=== PATIENT | male | born 1980 | race Caucasian/White ===

== ENCOUNTER 2021-02-10 18:16 | Emergency (ER) | payer SELFPAY ==
--- NOTE | 2021-02-10 18:32 | ED.GENADULT ---
HPI - General Adult General Chief complaint: Cardiac Arrest/CPR Stated complaint: cardiac arrest Time Seen by Provider: 02/10/21 18:31 Source: EMS Mode of arrival: EMS Limitations: other (Cardiac arrest, intubated) History of Present Illness HPI narrative: 41-year-old male brought to the emergency department in cardiac arrest. Information came from the paramedics and the patient's significant other, . The patient's neighbor saw the patient working in the backyard. Approximately 20 minutes later, the patient's significant other found the patient on his knees to slumped over with his head against the which she had, the patient was drooling and blood was coming from his nose. The neighbor, who was a medical professional came over and started CPR. Police were the 1st responders and the automatic defibrillator recommended a shock. When the paramedics arrived on the scene, the patient was receiving CPR. The paramedics 1st rhythm was asystole. They continued ACLS resuscitation and CPR for approximately 40 minutes. The patient received 5 rounds of epinephrine and 1 amp of calcium. He also received Narcan. The patient was intubated in the paramedics did establish an IO line. Patient remained asystolic with no pulses throughout the entire resuscitative process. On presentation to the emergency department, the patient was intubated by the paramedics and, the patient had symmetric breath sounds, he was cyanotic from the nipple line up to his head, he had no palpable pulses and his initial rhythm was asystole. CPR was continued and he was given epinephrine x2, rhythm checks and pulse checks revealed remained asystolic and pulseless. Given his cyanosis, his unknown down time prior to CPR, and his prolonged resuscitation of 40 minutes in the field I did not think that further resuscitation would be helpful. The patient was pronounced at 1826. Related Data Allergies Allergy/AdvReac Type Severity Reaction Status Date / Time No Known Allergies Allergy Verified 02/10/21 20:36 [facility] Past Medical History [facility] Narrative: The patient has no medical problems. According to his significant other he was not sick in any way prior to this event. The patient does not smoke cigarettes. He drinks alcohol occasionally. He uses marijuana occasionally. Social History Social History Advance Directives: No Advance Directives Information Provided: No Physical Exam Const: Other: Cyanotic, no spontaneous movements, no palpable pulses, endotracheal tube was in place, IO is in the left leg HENMT: Other: No evidence of trauma, normocephalic, Eyes: Other: Patient's pupils are fixed and dilated Neck: Other: No evidence of trauma Chest: Other: No evidence of trauma, chest rises and falls with bag ventilation Resp: Other: Breath sounds are symmetric with bag ventilation, the patient has no crepitus palpation of his chest. Cardio: Other: No audible heart sounds GI: Other: Abdomen is nondistended Back/Spine/Pelvis: Other: The patient does have dirt and grass stains on his back, no obvious trauma Skin: Other: The patient is cyanotic Neuro: Other: No spontaneous movement Extrem: Other: IO was in the left tibia, no evidence of trauma both hands are covered with dirt and grease. Course Course Course Narrative: 41-year-old male with no past medical history, no chronic illnesses, who had a cardiac arrest which was unwitnessed. When the patient was found by his significant other , his skin was mcmillan and cyanotic, CPR was started by bystanders but there was unknown down time prior to starting CPR. First responders had a shockable rhythm. Paramedics found the patient be asystolic and resuscitated the patient for approximately 40 minutes prior to arriving to the emergency department. The patient had asystole throughout the resuscitation and had no return of spontaneous circulation. On presentation to the emergency department the patient was cyanotic, his pupils were fixed and dilated. He was given 2 rounds of epinephrine 1 IV in 1 through the intraosseous line with no response. The patient was pronounced at 6:26 p.m. I did inform the patient's significant other who is here in the emergency department. She states that she will contact the patient's next of kin who was the patient's brother. I will discuss this patient's presentation with the site medical director. Patient was discussed with the site medical director's office. The site medical director, Dr. Schneider declined jurisdiction of the case. The site medical director case #[id number]. Discharge Plan Discharge Patient Disposition: Discharge Date/Time: 02/10/21 20:30 Date/Time: 02/10/21 18:43
--- NOTE | 2021-02-10 18:43 | PC.NURSE ---
[facility] NOTIFIED. TO CALL BACK FOR SCREENING.
--- NOTE | 2021-02-10 19:56 | PC.NURSE ---
Phone call from [facility] and information given to the bank. Communicated that patient was an organ donor on his license. At the moment still waiting to hear whether the medical office technologist will accept the case. [facility] to call back in 1 hour. Contact info is as follows Maddy Villarreal [phone].
[2021-02-11 08:32] LABS: Glucose, Whole Blood 233 mg/dL (60-115)
== END 2021-02-10 20:30 | disposition expired ==
PROVIDERS: Emergency Provider Emergency Medicine Emergency Medical Services
DX: I46.9 Cardiac arrest, cause unspecified (principal)
CPT/HCPCS: 82947; 99283; 99284; J0171